=== PATIENT | female | born 1995 | race Two or more races ===

== ENCOUNTER 2025-02-25 11:56 | Emergency (ER) | payer OTHER ==
[~2025-02-25] VITALS: Ht 160 cm; Wt 58.0 kg
[2025-02-25] MEDS ORDERED: Percocet 5-3251 EACH PO (16:04)
== END 2025-02-25 16:21 | disposition home or self-care (01) ==
LOC: ER 11:56
DX: R51.9 Headache, unspecified (principal); Z59.89 Other problems related to housing and economic circumstances
CPT/HCPCS: 70450; 99284-25